=== PATIENT | male | born 1945 | race African-American/Black ===

== ENCOUNTER 2020-09-29 18:41 | Emergency (ER) | payer OTHER ==
[~2020-09-29] VITALS: Ht 170.2 cm; Wt 64.0 kg
[2020-09-29 18:43] VITALS: BP 168/90
== END 2020-09-29 20:15 | disposition left against medical advice (07) ==
LOC: ER 18:41
DX: J44.1 Chronic obstructive pulmonary disease with (acute) exacerbation (principal); R55 Syncope and collapse; I10 Essential (primary) hypertension; E11.9 Type 2 diabetes mellitus without complications
CPT/HCPCS: 99283